=== PATIENT | male | born 1950 | race Caucasian/White ===

== ENCOUNTER 2020-07-27 23:34 | Inpatient (IN) | payer OTHER, SELFPAY ==
[~2020-07-27] VITALS: Ht 188 cm; Wt 105.7 kg
[2020-07-27 23:34] VITALS: BP_SYST 114
--- NOTE | 2020-07-27 23:34 | NUR ---
Patient to ER bed 05 to gown for evaluation. Side rails up. Report given to ISIDORO Palmer
--- NOTE | 2020-07-27 23:57 | NUR ---
LI - BS 154. AWARE.
[2020-07-28] VITALS (20 sets, daily range): BP systolic 86–123
--- NOTE | 2020-07-28 | NUR ---
ER Dr. HUDSON at bedside examining patient.
--- NOTE | 2020-07-28 00:10 | NUR ---
LAB AT BEDSIDE DRAWING BLOOD.
[2020-07-28 00:23] LABS: BASOPHILS % (AUTO) 0.4 % (0.0-2.0); EOSINOPHILS # (AUTO) 0.1 K/uL (0.0-0.4); EOSINOPHILS % (AUTO) 1.1 % (0.0-4.0); HEMATOCRIT 31.9 % (36-54); HEMOGLOBIN 10.2 g/dL (14.0-18.0); LYMPHOCYTES # (AUTO) 0.4 K/uL (1.0-5.5); LYMPHOCYTES % (AUTO) 6.3 % (20.5-51.5); MEAN CORPUSCULAR HEMOGLOBIN 32 pg (27-31); MEAN CORPUSCULAR HGB CONC 32 % (32-36); MEAN CORPUSCULAR VOLUME 100 fL (79.0-98.0); MONOCYTES # (AUTO) 0.2 K/uL (0.0-1.0); MONOCYTES % (AUTO) 3.2 % (1.7-9.3); NEUTROPHILS # (AUTO) 6.3 K/uL (1.8-7.7); PLATELET COUNT (AUTO) 164 K/uL (130-430); RED BLOOD CELL COUNT(AUTO) 3.19 MIL/uL (4.2-6.2); RED CELL DISTRIBUTION WIDTH 14.9 % (9.0-15.0)
[2020-07-28 00:27] LABS: INFLUENZA A&B ANTIGEN SCREEN NEGATIVE FOR A & B (NEGATIVE)
--- NOTE | 2020-07-28 00:28 | NUR ---
# 18 gauge angiocath placed to RIGHT FOREARM. Use of asceptic technique. Opsite placed over site. Blood return noted. Blood for lab drawn from site. Flushed with 10 cc of normal saline. No evidence of infiltration noted. Patient tolerated well.
--- NOTE | 2020-07-28 00:30 | NUR ---
PT BIB AMBULANCE FROM HOME C/O LOWER BACK PAIN S/P FALL. PAIN LEVEL 9/10. PT DENIES LOC OR HEAD INJURY. PT C/O INCREASED SOB. O2 SATURATION 96%. PT DENIES ANY CHEST PAIN. PT ANO X4. BED LOCKED IN LOWEST POSITION. SAFETY PRECAUTIONS IN PLACE.
[2020-07-28 00:40] LABS: INR 1.2 (0.80-1.20); PROTHROMBIN TIME 11.8 SECS (9.5-12.5)
[2020-07-28 00:49] LABS: ANION GAP 19 (5-15); CALCIUM 8.6 mg/dL (8.4-11.0); CHLORIDE 106 mmol/L (98-107); GLUCOSE 159 mg/dL (70-99); POTASSIUM 4.6 mmol/L (3.5-5.1); SODIUM SERUM 141 mmol/L (136-145); UREA NITROGEN, BLOOD 70 mg/dL (8-21)
[2020-07-28 00:55] LABS: ALANINE AMINOTRANSFERASE 15 U/L (12-78); ALBUMIN 3.4 g/dL (3.4-4.8); ASPARTATE AMINOTRANSFERASE 13 U/L (10-37); TOTAL BILIRUBIN 0.7 mg/dL (0.0-1.0)
[2020-07-28 00:57] LABS: CREATININE 7.61 mg/dL (0.55-1.30)
--- NOTE | 2020-07-28 00:57 | NUR ---
CRITICAL LAB REPORTING - CREATININE 7.61. NOTIFIED.
[2020-07-28] MEDS ORDERED: PIPERACILLIN/TAZO 3.375 GM in NS 50 ML IV ONE (01:00)
[2020-07-28] MEDS ORDERED: NACL 0.9% 1,000 ML IV ONE (01:00)
[2020-07-28] MEDS ORDERED: MORPHINE 2 MG/ML INJ. SYRINGE IVP ONE (01:15)
[2020-07-28] MEDS ORDERED: PIPERACILLIN/TAZOBACTAM 3.375 GM/VIAL (ZOSYN) IV ONE (01:27)
[2020-07-28] MEDS ORDERED: AZITHROMYCIN 500 MG in NS 250 ML IV ONE (01:45)
--- NOTE | 2020-07-28 01:45 | NUR ---
MECHELLE Palmer started by RN @ 0111, completed at 0145.
--- NOTE | 2020-07-28 01:47 | NUR ---
LAB AT BEDSIDE.
--- NOTE | 2020-07-28 01:49 | NUR ---
PER MD, URINE DOES NOT NEED TO BE COLLECTED FROM PATIENT AND WILL BE CANCELLED.
--- NOTE | 2020-07-28 02:04 | NUR ---
RECEIVED ADMIT ORDERS FROM DR. FERGUSON.
--- NOTE | 2020-07-28 02:08 | NUR ---
SPOKE WITH QUINN TONY RN TO REQUEST TELE BED.
[2020-07-28] MEDS ORDERED: TAMS-11 PO (02:13)
[2020-07-28] MEDS ORDERED: SODI325T PO (02:13)
[2020-07-28] MEDS ORDERED: ATOR10TA68 PO (02:13)
[2020-07-28] MEDS ORDERED: AZITHROMYCIN 500 MG/VIAL (ZITHROMAX) IV ONE (02:25)
--- NOTE | 2020-07-28 02:55 | NUR ---
IV NS started by RN @ 0111, completed in ER @ 0210.
--- NOTE | 2020-07-28 02:55 | NUR ---
Patient's code status is FULL CODE paperwork completed and placed in chart.
--- NOTE | 2020-07-28 02:55 | NUR ---
IVPB Azithromycin started by RN @ 0213, completed @ 025.
[2020-07-28] MEDS ORDERED: NALOXONE HCL 0.4 MG/ML AMP (NARCAN) IVP PRN (03:00)
[2020-07-28] MEDS ORDERED: ACETAMINOPHEN 325 MG TABLET PO PRN (03:00)
[2020-07-28] MEDS ORDERED: ALBUTEROL SULFATE 0.083% 2.5 MG/3 ML VIAL.NEB INH PRN (03:00)
--- NOTE | 2020-07-28 03:02 | NUR ---
Patient will be admitted to care of DR. SCHAEFFER. Admitted to TELE unit. Will go to room 121-B. Belongings list completed. Complete and up to date summary report printed. SBAR report to be given at bedside with opportunity for questions.
--- NOTE | 2020-07-28 03:03 | NUR ---
Transfer to [facility] 121-B via ACLS protocol. Licensed nurse present. IV present no signs or symptoms of infiltration.
--- NOTE | 2020-07-28 03:11 | NUR ---
ADMISSION NOTE Received patient from ER via gurney. Patient admitted with diagnosis of RENAL FAILURE, FLUID OVERLOAD. Patient is awake, alert, oriented X 4. Patient oriented to hospital room, call light, toileting, pain management and safety-teach back done. Patient informed that LANDRY will be HIS nurse and that their room number is 121B. Personal belongings checked and Belongings List documented. Call light within reach.
--- NOTE | 2020-07-28 03:30 | NUR ---
ASSESSMENT/LOW BP/BRADYCARDIA PATIENT IN BED, AOX4, DENIES PAIN OR SOB. NASAL CANULA ATTACHED, ON 2L OF OXYGEN. PATIENT'S BP IS TRENDING LOW, PATIENT PLACED ON [place]ENDE[place], BP WAS AT 100/53. BUT HEART RATE HAS BEEN SUSTAINING AT 40'S. RHYTHM SHOWS ON TELE MONITOR A-FLUTTER. WILL INFORM MD. CALL LIGHT WITH PATIENT. BED ALARM ON. BED IS LOCKED AND AT LOWEST POSITION. WILL CONTINUE TO MONITOR.
--- NOTE | 2020-07-28 03:48 | NUR ---
COMMUNICATION W/ DR. PHYLLIS FERGUSON PAGED, SHE HAS BEEN MADE AWARE ABOUT CONCERNING ADMISSION ASSESSMENT WITH BLOOD PRESSURE 70/41 WITH HOB AT 30 DEGREES, AND BLOOD PRESSURE AVERAGING 93/48 WHEN REPOSITIONED TO TRENDELENBURG POSITION- HIGHEST BLOOD PRESSURE READING ON TRENDELENBURG WAS 100/53. HIS HEART RATE IS SUSTAINING ABOUT 39-41 BMP WHILE AWAKE AND SPEAKING TO HIS NURSE. HE WAS NOT PRESENTING ANY SYMPTOMS DURING THIS ASSESSMENT. DR. FERGUSON HAS ALSO REQUESTED TO D/C NORMAL SALINE ORDERED AND TO CONSULT DR. PETERSON. DR. FERGUSON HAS ALSO ORDERED PATIENT TO BE TRANSFERRED TO ICU. ALL ORDERS READ BACK, VERIFIED, AND WILL BE FOLLOWED THROUGH IMMEDIATELY. CHARGE NURSE AND SPINNER TENDER ARE AWARE.
--- NOTE | 2020-07-28 03:49 | NUR ---
HIGH ALERT NOTE: Called Dr. FERGUSON back at [phone] identified within the medical roster to verify physician authenticity.
--- NOTE | 2020-07-28 03:58 | NUR ---
COMMUNICATION W/ ICU ICU HAS BEEN MADE AWARE THAT PATIENT HAS BEEN ORDERED TO TRANSFER TO ICU. ICU STATED THEY WILL LET MST KNOW WHEN BED IS AVAILABLE.
[2020-07-28] MEDS ORDERED: NOREPINEPHRINE BITARTRATE 4 MG in D5W 246 ML IV PRN (04:15)
--- NOTE | 2020-07-28 04:53 | NUR ---
ROUNDS PATIENT IN BED SLEEPING. HEART RATE SUSTAINING MID 44-46. NO S/S OF ACUTE DISTRESS. AWAITING BED FROM ICU AT THIS TIME. WILL CONTINUE TO MONITOR.
--- NOTE | 2020-07-28 05:15 | NUR ---
CONSULT REASON FOR CONSULT: RENAL FAILURE PERSON I SPOKE WITH: JOSE ANTONIO CONSULTING PHYSICIAN: DR. SHAFFER (DR. HOUGH BOILER WASHER) INSTALLMENT ACCOUNT CHECKER PHONE NUMBER: [phone] ORDERING PHYSICIAN: DR. FERGUSON
--- NOTE | 2020-07-28 05:21 | NUR ---
CONSULT REASON FOR CONSULT: BRADYCARDIA PERSON I SPOKE WITH: CYNTHIA CONSULTING PHYSICIAN: DR. SKINNER (DR. MONZON NURSE PRACTICAL) YOUTH OFFICER PHONE NUMBER: [phone] ORDERING PHYSICIAN: DR. FERGUSON
--- NOTE | 2020-07-28 05:40 | NUR ---
COMMUNICATION W/ ICU ICU HAS PAGED, THEY STATED THEY ARE NOW READY TO RECEIVE PATIENT IN BED 8. PATIENT WILL BE TRANSFERRED AT THIS TIME.
--- NOTE | 2020-07-28 05:42 | NUR ---
Patient received from Telemetry. AAOx4, VSS, HR in 40s Atrial Flutter. Patient states he does not have a correspondence renew clerk. Fistula thrill/bruit palpated/auscultated- no abnormalities. States he has not received dialysis yet in his life. Also states he has not has much urine output in "the past few days", but had diarrhea for 3 days. Will pass information to oncoming nurse.
--- NOTE | 2020-07-28 05:55 | NUR ---
TRANSFER PATIENT PATIENT TRANSFERRED TO ICU AT THIS TIME. REPORT GIVEN TO ICU NURSE. PATIENT SHOWS NO S/S OF ACUTE DISTRESS. AOX4, DENIES PAIN OR SOB. NASAL CANULA ATTACHED PROPERLY, ON 2L OF OXYGEN. IV SITE PATENT. NO SIGNS OF INFILTRATION OR INFECTION NOTED. SKIN WARM AND DRY TO TOUCH, NO S/S OF HYPOGLYCEMIA NOTED. PATIENT CARE ENDORSED.
--- NOTE | 2020-07-28 07:20 | NUR ---
Received patient and report from [facility] shift nurse. Patient in bed with side rails x 3 up. Call light with in reach.
--- NOTE | 2020-07-28 07:50 | NUR ---
MD Quesada informed via telephone new consult for patient.
--- NOTE | 2020-07-28 08:10 | NUR ---
MD Schmitz present at bedside assessing patient, requested we call medical administrator back again to request dialysis, paged nephro.
[2020-07-28] MEDS: ATORVASTATIN 10 MG TABLET PO SCH (08:15)
[2020-07-28] MEDS: PIPERACILLIN/TAZO 2.25G/DEX-IS 50 ML IV SCH ×3 (08:15→23:13)
--- NOTE | 2020-07-28 08:50 | NUR ---
MD Marcus for feather cutting machine feeder present in room assessing patient. Stated patient able to transfer to tele unit based on nephro standpoint, must wait for transfer recommendations from other consultations and primary. Also stated no need for dialysis.
[2020-07-28] MEDS ORDERED: SODIUM BICARBONATE 650 MG TABLET PO SCH (09:00)
[2020-07-28 09:12] LABS: BASOPHILS % (AUTO) 0.3 % (0.0-2.0); EOSINOPHILS % (AUTO) 0.9 % (0.0-4.0); HEMATOCRIT 30.2 % (36-54); HEMOGLOBIN 9.7 g/dL (14.0-18.0); LYMPHOCYTES # (AUTO) 0.4 K/uL (1.0-5.5); LYMPHOCYTES % (AUTO) 7.2 % (20.5-51.5); MEAN CORPUSCULAR HEMOGLOBIN 32 pg (27-31); MEAN CORPUSCULAR HGB CONC 32 % (32-36); MEAN CORPUSCULAR VOLUME 98 fL (79.0-98.0); MONOCYTES # (AUTO) 0.3 K/uL (0.0-1.0); MONOCYTES % (AUTO) 6.5 % (1.7-9.3); NEUTROPHILS # (AUTO) 4.5 K/uL (1.8-7.7); NEUTROPHILS % (AUTO) 85.1 % (40.0-70.0); PLATELET COUNT (AUTO) 136 K/uL (130-430); RED BLOOD CELL COUNT(AUTO) 3.07 MIL/uL (4.2-6.2); RED CELL DISTRIBUTION WIDTH 14.8 % (9.0-15.0); WHITE BLOOD COUNT (AUTO) 5.3 K/uL (4.8-10.8)
[2020-07-28 09:34] LABS: ALANINE AMINOTRANSFERASE 14 U/L (12-78); ALBUMIN 3.1 g/dL (3.4-4.8); ANION GAP 14 (5-15); ASPARTATE AMINOTRANSFERASE 14 U/L (10-37); CALCIUM 8.3 mg/dL (8.4-11.0); CHLORIDE 108 mmol/L (98-107); GLUCOSE 116 mg/dL (70-99); POTASSIUM 5.1 mmol/L (3.5-5.1); SODIUM SERUM 141 mmol/L (136-145); TOTAL BILIRUBIN 0.6 mg/dL (0.0-1.0); UREA NITROGEN, BLOOD 75 mg/dL (8-21)
--- NOTE | 2020-07-28 09:42 | NUR ---
MD Parker paged for troponin critical labs for 2.466.
[2020-07-28 09:44] LABS: CREATININE 7.58 mg/dL (0.55-1.30)
--- NOTE | 2020-07-28 10:30 | NUR ---
MD Parker at bedside assessing patient, ordered for new order EKG to be performed. Informed troponin's level from today am labs.
[2020-07-28] MEDS ORDERED: NEPA1.7D OP (11:02)
[2020-07-28] MEDS ORDERED: SODI650T PO (11:02)
--- NOTE | 2020-07-28 11:30 | NUR ---
MD Justice at bedside assessing patient, stated patient is able to transfer to floor as long as pulmo approves.
--- NOTE | 2020-07-28 12:30 | NUR ---
Reported to MD Quesada patient stated hasn't urinated since before admission with issues urinating past three days with bladder palpated firm and distended. MD Quesada new order bladder scanner. Performed bladder scanner with 261, reported to MD Quesada, new order to place alcazar catheter and stated will communicate with bakery clerk for recommendation for dialysis.
[2020-07-28] MEDS ORDERED: ALBUMIN HUMAN 5% 500 ML IV ONE (13:15)
[2020-07-28] MEDS: SODIUM BICARBONATE 650 MG TABLET PO SCH ×2 (14:28→23:11)
[2020-07-28] MEDS: HYDROcodone/ACETAMIN 5-325 MG TAB (NORCO/ VICODIN) PO PRN (14:38)
--- NOTE | 2020-07-28 15:15 | NUR ---
Placed second IV insertion site 18 gauge saline lock on right forearm. Was able to flush IV and patent with clean, intact, dressing.
--- NOTE | 2020-07-28 15:30 | NUR ---
RAMOS CATH: # 16 FR Ramos catheter with 10 cc bulb inserted with use of sterile technique. Bulb inflated with 10 cc sterile water. Immediate return of 200 cc yellow urine noted. Bedside drainage bag placed below level of bladder. Pt tolerated procedure WNL.
--- NOTE | 2020-07-28 15:44 | NUR ---
Dropped off bilateral nasal swabs collected from patient at lab to be tested for MRSA.
--- NOTE | 2020-07-28 19:21 | NUR ---
Endorsed patient and gave report to NOC shift nurse. Patient in bed awake with side rails x 3 up. Call light with in reach.
--- NOTE | 2020-07-28 21:00 | NUR ---
Opening Note Received report from AM nurse using SBAR approach.
--- NOTE | 2020-07-28 21:20 | NUR ---
Moved patient to ICU-6. Patient tolerated well, no signs or symptoms of distress. Patient on the monitor.
[2020-07-28] MEDS: TAMSULOSIN HCL 0.4 MG CAP PO SCH (23:12)
[2020-07-29] VITALS (22 sets, daily range): BP systolic 101–129
[2020-07-29 05:32] LABS: EOSINOPHILS # (AUTO) 0.2 K/uL (0.0-0.4); HEMATOCRIT 28.8 % (36-54); HEMOGLOBIN 9.4 g/dL (14.0-18.0); LYMPHOCYTES # (AUTO) 0.4 K/uL (1.0-5.5); LYMPHOCYTES % (AUTO) 10.1 % (20.5-51.5); MEAN CORPUSCULAR HEMOGLOBIN 32 pg (27-31); MEAN CORPUSCULAR HGB CONC 33 % (32-36); MEAN CORPUSCULAR VOLUME 98 fL (79.0-98.0); MONOCYTES # (AUTO) 0.2 K/uL (0.0-1.0); MONOCYTES % (AUTO) 5.4 % (1.7-9.3); NEUTROPHILS # (AUTO) 3.5 K/uL (1.8-7.7); NEUTROPHILS % (AUTO) 79.5 % (40.0-70.0); PLATELET COUNT (AUTO) 124 K/uL (130-430); RED BLOOD CELL COUNT(AUTO) 2.94 MIL/uL (4.2-6.2); RED CELL DISTRIBUTION WIDTH 14.7 % (9.0-15.0); WHITE BLOOD COUNT (AUTO) 4.4 K/uL (4.8-10.8)
[2020-07-29] MEDS: PIPERACILLIN/TAZO 2.25G/DEX-IS 50 ML IV SCH ×3 (05:32→20:57)
[2020-07-29 05:57] LABS: ALANINE AMINOTRANSFERASE 9 U/L (12-78); ANION GAP 15 (5-15); ASPARTATE AMINOTRANSFERASE 12 U/L (10-37); CHLORIDE 106 mmol/L (98-107); GLUCOSE 120 mg/dL (70-99); POTASSIUM 4.7 mmol/L (3.5-5.1); SODIUM SERUM 138 mmol/L (136-145); TOTAL BILIRUBIN 0.6 mg/dL (0.0-1.0); UREA NITROGEN, BLOOD 74 mg/dL (8-21)
--- NOTE | 2020-07-29 06:04 | NUR ---
Critical Lab Lab called and reported critical creatinine 7.87. Called Dr. Ramey but Dr. Prasad is deposition operator. Waiting for call back.
[2020-07-29 06:08] LABS: CREATININE 7.87 mg/dL (0.55-1.30)
--- NOTE | 2020-07-29 06:30 | NUR ---
Dr. Marcus called back. Informed him of creatinine 7.87. No new orders received.
--- NOTE | 2020-07-29 07:25 | NUR ---
Nutrition Update Leo Scale 16 noted. Pt admitted for Renal failure, Fluid overload Diet: Cardiac diet BMI: 27.7 kg/m2 RD to follow per nutrition care standards.
--- NOTE | 2020-07-29 07:30 | NUR ---
Opening Note Received report from endorsing RN. Pt AAOx4, states no pain at this time, no distress noted on room air. IV sites intact, patent, no infiltration noted. Cochran in place draining yellow urine to gravity. Noted AV shunt left arm. Pt states he was not able to get enough rest and would like to sleep after breakfast.
[2020-07-29] MEDS: SODIUM BICARBONATE 650 MG TABLET PO SCH ×3 (08:14→20:55)
[2020-07-29] MEDS: ATORVASTATIN 10 MG TABLET PO SCH (08:15)
--- NOTE | 2020-07-29 10:15 | NUR ---
Pt noted asleep, equal chest rise and fall. No distress noted.
--- NOTE | 2020-07-29 11:50 | NUR ---
US thoracentesis being done at bedside with Dr. Santana and transporter radiology. Time out done. Noted 600 ml of red tinged fluid drained from right side. Pt tolerated.
--- NOTE | 2020-07-29 12:50 | NUR ---
Pt and Dr. Andino signed dialysis consent
[2020-07-29] MEDS ORDERED: NALOXONE HCL 0.4 MG/ML AMP (NARCAN) IVP PRN (13:00)
[2020-07-29] MEDS ORDERED: ONDANSETRON HCL 4 MG/2 ML VIAL IVP PRN (13:00)
[2020-07-29] MEDS ORDERED: HYDROcodone/ACETAMIN 10-325 MG TAB PO PRN (13:00)
--- NOTE | 2020-07-29 13:00 | NUR ---
Dr. Andino/Pain Pt c/o nausea and pain now developing post thoracentesis, 04/22 pain in "right lung." Dr. Andino rounding on pt, made aware of pt's concerns, and new orders made for prn pain and nausea medication.
[2020-07-29] MEDS ORDERED: ONDANSETRON HCL 4 MG/2 ML VIAL ONE (13:12)
--- NOTE | 2020-07-29 15:00 | NUR ---
Pt states pain medication effective and no longer feels nauseous. States he does not have appetite but requests for coffee. No other complaints at this time.
--- NOTE | 2020-07-29 18:00 | NUR ---
Dialysis nurse at bedside with patient starting dialysis.
--- NOTE | 2020-07-29 18:50 | NUR ---
Closing Pt currently in dialysis. Pt in no signs of distress. IV sites intact, patent, no infiltration noted. Will endorse plan of care to night stocker RN.
--- NOTE | 2020-07-29 19:30 | NUR ---
Pt report received. Pt AAOx4, even and non-labored respirations with O2 at 3 LPM/NC. Pt c/o pain at 3/10 to right abdomen s/p thoracentesis. Pt refuses pain medications at this time. PIV to RFA and RAC patent and secure. Dialysis in progress to Left arm A/V Fistula, tolerating well. head of sales and marketing at bedside. F/C draining yellow and sedimented urine.
[2020-07-29 20:13] LABS: BF APPEARANCE UNSPUN CLOUDY (CLEAR); BODY FLUID SOURCE/ TYPE PLEURAL; SOURCE/TYPE ,BODY FLUID PLEURAL
[2020-07-29 20:14] LABS: APPEARANCE,SPUN,BODY FLUID CLEAR (CLEAR); BODY FLUID COLOR YELLOW (LT YELLOW); BODY FLUID TOTAL VOLUME 600 mL; RBC, BODY FLUID 7682 /uL; WBC, BODY FLUID 2.2 /uL
[2020-07-29 20:15] LABS: LYMPHOCYTES, BODY FLUID 100 %; NEUTROPHIL, BODY FLUID 0 %
[2020-07-29] MEDS: TAMSULOSIN HCL 0.4 MG CAP PO SCH (20:55)
--- NOTE | 2020-07-29 21:30 | NUR ---
Pt transferred to [facility] Rm 118 on registered nurse cardiac and O2 at 3 LPM/NC. Pt accompanied by ICU RNs x 2. No needs verbalized at this time. VSS, NAD. I will continue care of pt throughout this shift.
[2020-07-29 22:07] LABS: BODY FLUID GLUCOSE 102 mg/dL
[2020-07-29 22:08] LABS: BODY FLUID TOTAL PROTEIN 1.4 g/dL
--- NOTE | 2020-07-29 22:30 | NUR ---
Pt on iPad face timing family members. CJ.
[2020-07-30 00:17] VITALS: BP_SYST 133
--- NOTE | 2020-07-30 01:20 | NUR ---
Pt HR has been cycling between SB, A-fib, and 2nd Degree A/V Block with lowest HR 34. Pt resting quielty with even and non-labored respirations, easily awakened. Pt denies c/o C/P or discomfort. Called Dr. Parker's exchange, Dr. Mcwilliams sales and distribution clerk and awaiting call back.
--- NOTE | 2020-07-30 01:45 | NUR ---
HR and rhythm continues to vary, yet pt asymptomatic. Pt resting quietly, easily awakened, denies c/o pain or discomfort. Upon awakening, HR increases to 80-90's and Rhythm becomes NSR.
--- NOTE | 2020-07-30 01:54 | NUR ---
PAGED PAGED DOCTOR SKINNER
--- NOTE | 2020-07-30 02:34 | NUR ---
Spoke with Dr. Mcwilliams regarding pt HR and rhythm. No new orders received and Instructed to continue to monitor pt.
--- NOTE | 2020-07-30 04:00 | NUR ---
Pt resting quietly, even and non-labored respirations, HR 74, A-fib rhythm.
[2020-07-30 05:10] LABS: HEPATITIS A AB, IgM Negative (Negative); HEPATITIS B CORE AB, IgM Negative (Negative); HEPATITIS B SURFACE AG Negative (Negative)
[2020-07-30] MEDS: PIPERACILLIN/TAZO 2.25G/DEX-IS 50 ML IV SCH ×3 (05:54→21:22)
[2020-07-30 06:30] LABS: BASOPHILS % (AUTO) 0.6 % (0.0-2.0); EOSINOPHILS # (AUTO) 0.1 K/uL (0.0-0.4); EOSINOPHILS % (AUTO) 3.7 % (0.0-4.0); HEMATOCRIT 27.3 % (36-54); LYMPHOCYTES # (AUTO) 0.4 K/uL (1.0-5.5); LYMPHOCYTES % (AUTO) 10.1 % (20.5-51.5); MEAN CORPUSCULAR HEMOGLOBIN 32 pg (27-31); MEAN CORPUSCULAR HGB CONC 33 % (32-36); MEAN CORPUSCULAR VOLUME 97 fL (79.0-98.0); MONOCYTES # (AUTO) 0.3 K/uL (0.0-1.0); MONOCYTES % (AUTO) 7.6 % (1.7-9.3); NEUTROPHILS # (AUTO) 2.9 K/uL (1.8-7.7); PLATELET COUNT (AUTO) 113 K/uL (130-430); RED BLOOD CELL COUNT(AUTO) 2.82 MIL/uL (4.2-6.2); RED CELL DISTRIBUTION WIDTH 14.5 % (9.0-15.0); WHITE BLOOD COUNT (AUTO) 3.7 K/uL (4.8-10.8)
--- NOTE | 2020-07-30 06:30 | NUR ---
Pt resting quietly with respirations even and non-labored. Pt oliguric with total U/O 150 mL. Throughout this shift, HR and rhythm varied from SB, SR, A-fib, to 2nd degree A/V block. Rhythm presently A-fib with HR in the 80's. Pt has been asymptomatic. Dr. Parker and Dr. Mcwilliams both aware of pt status.
[2020-07-30 07:03] LABS: ANION GAP 9 (5-15); CHLORIDE 104 mmol/L (98-107); CREATININE 6.06 mg/dL (0.55-1.30); GLUCOSE 116 mg/dL (70-99); PHOSPHORUS 4.9 mg/dL (2.7-4.5); POTASSIUM 4.1 mmol/L (3.5-5.1); SODIUM SERUM 138 mmol/L (136-145); UREA NITROGEN, BLOOD 52 mg/dL (8-21)
--- NOTE | 2020-07-30 07:15 | NUR ---
Pt report give to receiving RN.
--- NOTE | 2020-07-30 07:15 | NUR ---
Opening Note patient in bed sitting up, alert and awake, no signs of distress noted, bed locked and at low position, call light within reach, fall and aspiration precautions put in place, will monitor patient for any changes.
[2020-07-30 08:20] VITALS: BP_SYST 102
[2020-07-30] MEDS: ATORVASTATIN 10 MG TABLET PO SCH (08:22)
[2020-07-30] MEDS: SODIUM BICARBONATE 650 MG TABLET PO SCH ×3 (08:22→21:22)
--- NOTE | 2020-07-30 08:30 | NUR ---
MD Rounds Dr. Turcios at bedside assessing patient.
--- NOTE | 2020-07-30 10:50 | NUR ---
Dietitian Recommendations *Recommend continue Cardiac Diet *Recommend add Nepro BID to provide additional 850 kcal, 38 g protein to promote PO intake. Please see Nutrition Assessment for details. EP,RD
--- NOTE | 2020-07-30 11:15 | NUR ---
RN Rounds patient in bed sitting up, no signs of distress noted, no other needs at this time, safety measures maintained.
[2020-07-30 11:34] VITALS: BP_SYST 95
--- NOTE | 2020-07-30 13:05 | NUR ---
RN Rounds patient in bed resting, no signs of distress noted, patient denies any pain, no other needs at this time, safety precautions maintained.
--- NOTE | 2020-07-30 15:20 | NUR ---
Medications patient resting, respirations even and unlabored, administered medications as ordered per MD, patient tolerated well, safety measures maintained.
[2020-07-30 15:36] VITALS: BP_SYST 117
--- NOTE | 2020-07-30 18:25 | NUR ---
Closing Note patient in bed, no signs distress noted, endorsed patient care to oncoming roll on man nurse.
[2020-07-30 20:30] VITALS: BP_SYST 110
--- NOTE | 2020-07-30 20:30 | NUR ---
Opening notes Pt AAOx4, VSS, no s/s distress noted. Pt eating dinner. IV saline lock R. FA and R. AC 18G good blood return. L. arm AV shunt dressing C/D/I, thrill and bruit present. Right posterior bandaid C/D/I. Call light within reach. Bed low, locked, siderails up x2, alarm on. To monitor.
[2020-07-30] MEDS: TAMSULOSIN HCL 0.4 MG CAP PO SCH (21:22)
--- NOTE | 2020-07-30 21:22 | NUR ---
Rounds/med pass Pt alert, awake, talking on the phone. Meds passed as scheduled. Tolerated well. Pt asking about his eyedrops. Informed pt will f/u with ICU nurse/pharmacy.
[2020-07-30] MEDS ORDERED: PREDEYE1% LEFT EYE (23:06)
[2020-07-30] MEDS ORDERED: NEPA1.7D OP (23:11)
[2020-07-31] VITALS: BP_SYST 122
--- NOTE | 2020-07-31 00:10 | NUR ---
Rounds Pt asleep, no s/s distress noted. VSS. Call light within reach. Safety maintained. Vaibhav SCDs on. To monitor.
--- NOTE | 2020-07-31 01:28 | NUR ---
FOLLOW UP ON DC PLANNING CALLED SAND CARRIER CHART SNATCHER FOR TO SEE IF ANYTHING HAS BEEN STARTED FOR FINDING OUT PT DIALYSIS AT [facility] THEY TOLD ME NOTHING HAS BEEN STARTED PER THERE NOTES. INDORSED TO CHARGE NURSE TO HAVE DAY SHIFT FOLLOW UP
[2020-07-31] MEDS: PIPERACILLIN/TAZO 2.25G/DEX-IS 50 ML IV SCH ×2 (06:09→14:26)
--- NOTE | 2020-07-31 06:30 | NUR ---
Closing notes Pt asleep, easily awakens, no s/s distress noted. IV saline lock R. FA and R. AC 18G good blood return. IV abx administered. L. arm AV shunt dressing C/D/I, thrill and bruit present. Call light within reach. Bed low, locked, siderails up x2, alarm on. To monitor.
--- NOTE | 2020-07-31 07:15 | NUR ---
Opening Note patient in bed alert and awake, no signs of distress noted, bed locked and at low position, call light within reach, fall and aspiration precautions put in place, will monitor patient for any changes.
[2020-07-31 07:50] VITALS: BP_SYST 130
[2020-07-31] MEDS: SODIUM BICARBONATE 650 MG TABLET PO SCH ×3 (08:53→21:00)
[2020-07-31] MEDS: ATORVASTATIN 10 MG TABLET PO SCH (08:53)
--- NOTE | 2020-07-31 08:55 | NUR ---
RN Rounds/Medications patient alert and awake, administered medications as ordered per MD, patient tolerated well, safety measures maintained.
[2020-07-31] MEDS: HYDROcodone/ACETAMIN 5-325 MG TAB (NORCO/ VICODIN) PO PRN ×2 (10:20→14:28)
[2020-07-31 11:43] VITALS: BP_SYST 125
[2020-07-31 15:41] VITALS: BP_SYST 134
--- NOTE | 2020-07-31 19:08 | NUR ---
PAGEMatilde SOUZA: PAGEMatilde SHAFFER's OFFICE REGARDING ORDERS OF ALBUMIN FOR DIALYSIS NURSE DUE TO PATIENT HAVING LOW BLOOD PRESSURE. BUSINESS EDUCATION TEACHER PHYSICIAN IS DR. RUELAS. SPOKE WITH
[2020-07-31] MEDS ORDERED: ALBUMIN HUMAN 25% 100 ML IV ONE ×2 (19:30→19:50)
[2020-07-31] MEDS: TAMSULOSIN HCL 0.4 MG CAP PO SCH (21:00)
[2020-08-01 06:49] LABS: BASOPHILS % (AUTO) 0.6 % (0.0-2.0); EOSINOPHILS # (AUTO) 0.2 K/uL (0.0-0.4); EOSINOPHILS % (AUTO) 4.1 % (0.0-4.0); HEMATOCRIT 28.5 % (36-54); HEMOGLOBIN 9.4 g/dL (14.0-18.0); LYMPHOCYTES # (AUTO) 0.5 K/uL (1.0-5.5); LYMPHOCYTES % (AUTO) 11.2 % (20.5-51.5); MEAN CORPUSCULAR HEMOGLOBIN 32 pg (27-31); MEAN CORPUSCULAR HGB CONC 33 % (32-36); MEAN CORPUSCULAR VOLUME 97 fL (79.0-98.0); MONOCYTES # (AUTO) 0.4 K/uL (0.0-1.0); MONOCYTES % (AUTO) 8.8 % (1.7-9.3); NEUTROPHILS % (AUTO) 75.3 % (40.0-70.0); PLATELET COUNT (AUTO) 134 K/uL (130-430); RED BLOOD CELL COUNT(AUTO) 2.94 MIL/uL (4.2-6.2); RED CELL DISTRIBUTION WIDTH 14.4 % (9.0-15.0)
[2020-08-01 07:00] VITALS: BP_SYST 127
--- NOTE | 2020-08-01 07:15 | NUR ---
CLOSING NOTES Patient resting, no signs of acute respiratory distress, 2L NC. IV site patent, dressings c/d/i. Cochran catheter draining by gravity, no kinks, no loops, bag not touching the floor. Monitored for pain throughout shift. During downtime, spoke to case resolution specialist, Heriberto , that patient did not want be discharged to SNF, Home health is already set up. Endorsed to morning nurse. Call light within reach, bed alarm on, bed at lowest position. All needs met throughout shift. Will endorse care to oncoming shift.
[2020-08-01 07:31] LABS: ALANINE AMINOTRANSFERASE 12 U/L (12-78); ALBUMIN 2.6 g/dL (3.4-4.8); ANION GAP 7 (5-15); ASPARTATE AMINOTRANSFERASE 7 U/L (10-37); CALCIUM 8.1 mg/dL (8.4-11.0); CHLORIDE 100 mmol/L (98-107); CREATININE 4.97 mg/dL (0.55-1.30); GLUCOSE 114 mg/dL (70-99); POTASSIUM 4.5 mmol/L (3.5-5.1); SODIUM SERUM 136 mmol/L (136-145); TOTAL BILIRUBIN 0.6 mg/dL (0.0-1.0); UREA NITROGEN, BLOOD 42 mg/dL (8-21)
[2020-08-01 08:00] VITALS: BP_SYST 127
--- NOTE | 2020-08-01 08:30 | NUR ---
NURSE REPORT Received report from night nurse and this nurse assume care at 0715. Received patient awake and alert. c/o pain and medicated with [place] 5/325. Cochran catheter intact and draining yellow urine. On tele- SR 1 degree AVB. Waiting for discharge for SNF. VSS. Afeb. No BP or blood draw on left arm. Receives HD on MWF.
[2020-08-01] MEDS: SODIUM BICARBONATE 650 MG TABLET PO SCH ×2 (08:56→14:29)
[2020-08-01] MEDS: ATORVASTATIN 10 MG TABLET PO SCH (08:56)
[2020-08-01] MEDS: HYDROcodone/ACETAMIN 5-325 MG TAB (NORCO/ VICODIN) PO PRN ×2 (08:57→14:23)
[2020-08-01] MEDS ORDERED: ILEVRO 0.3% OP SCH (09:00)
[2020-08-01] MEDS ORDERED: levoFLOXacin 250 MG TABLET PO SCH (10:00)
[2020-08-01 11:33] VITALS: BP_SYST 125
[2020-08-01 12:00] VITALS: BP_SYST 125
--- NOTE | 2020-08-01 13:59 | NUR ---
[facility]/HCP HOUSE SITTER SENIOR SOFTWARE PROJECT MANAGER, MS AUNDREA WATSON ARRANGED TRANSFER TO [facility], RM 224. [facility] ON WILL CALL.
[2020-08-01 15:40] VITALS: BP_SYST 137
[2020-08-01 17:41] VITALS: BP_SYST 137
--- NOTE | 2020-08-01 18:40 | NUR ---
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 Patient signed discharge instructions and copy given to patient and a [facility] No c/o pain or discomfort.
--- NOTE | 2020-08-01 19:30 | NUR ---
NURSING REPORT Report given to night nurse Kennedy to assume care of patient. Patient has been given discharge instructions and [facility] Report already given to RN Dorothy Arroyo about 1844. This nurse had called Dorothy Arroyo and told her that the ambulance are taking patient to [place]. Patient needs to be transferred by stretcher. SL and telemetry to be removed by Kennedy.
--- NOTE | 2020-08-01 20:25 | NUR ---
D/C Patient Patient given medication reconciliation form and D/C instructions. Exit Care provided. Patient verbalized understanding. MD discussed with patient the results and treatment provided. Patient in stable condition, no signs of hypotension, hypoglycemia, or pain at this time. ID band removed. IV catheters removed, intact and dressing applied, no active bleeding. Patient educated on pain management. All belongings sent with patient.
== END 2020-08-01 20:25 | DRG 280 ==
LOC: SED 23:34 → STU 07-28 02:05 → SIC 07-28 05:42 → STU 07-29 22:02
PROVIDERS: ADMIT Internal Medicine Hospice and Palliative Medicine; ATTEND Internal Medicine Hospice and Palliative Medicine
PROC: 0W993ZZ Drainage of Right Pleural Cavity, Percutaneous Approach (ICD-10-PCS; principal; 2020-07-29)
PROC: 5A1D70Z Performance of Urinary Filtration, Intermittent, Less than 6 Hours Per Day (ICD-10-PCS; 2020-07-29)
PROC: 5A1D70Z Performance of Urinary Filtration, Intermittent, Less than 6 Hours Per Day (ICD-10-PCS; 2020-07-31)
DX: I13.2 Hypertensive heart and chronic kidney disease with heart failure and with stage 5 chronic kidney disease, or end stage renal disease (principal); I21.A1 Myocardial infarction type 2; J96.21 Acute and chronic respiratory failure with hypoxia; J18.9 Pneumonia, unspecified organism; N18.6 End stage renal disease; I50.43 Acute on chronic combined systolic (congestive) and diastolic (congestive) heart failure; J91.8 Pleural effusion in other conditions classified elsewhere; N17.9 Acute kidney failure, unspecified; E87.2 Acidosis; I49.5 Sick sinus syndrome; D63.1 Anemia in chronic kidney disease; Z99.2 Dependence on renal dialysis; E11.22 Type 2 diabetes mellitus with diabetic chronic kidney disease; E78.5 Hyperlipidemia, unspecified; I44.1 Atrioventricular block, second degree; I95.9 Hypotension, unspecified; M54.5 Low back pain; I48.0 Paroxysmal atrial fibrillation; Z20.828 Contact with and (suspected) exposure to other viral communicable diseases; W19.XXXA Unspecified fall, initial encounter; Y93.89 Activity, other specified; Y92.89 Other specified places as the place of occurrence of the external cause; Y99.8 Other external cause status; Z83.3 Family history of diabetes mellitus
CPT/HCPCS: 32555; 36415; 71045; 71250-TC; 72100-TC; 72220-TC; 73521; 76376; 76604; 80048; 80053; 80074; 82042; 82947-TC; 83605; 84100-TC; 84157-TC; 84484; 85025; 85610-TC; 86480; 86710; 87040-TC; 87070-TC; 87081; 87205-TC; 88108; 88305; 89051-TC; 89060-TC; 90935; 90937; 93005; 93306; 97110-GP; 97112-GP; 97116-GP; 97163; 99291; C1729; G0378; J0456; J2270; J2405; J2543; J7030; J7060; P9041; U0003